=== PATIENT | female | born 1985 | race Caucasian/White ===

== ENCOUNTER 2016-07-14 13:36 | Inpatient (IN) | payer OTHER, BC ==
[2016-07-14 15:09] VITALS: BMI 24.7
[2016-07-14] MEDS ORDERED: AMPICILLIN - 2G/100 ML IVPB ONE (15:30)
[2016-07-14] MEDS ORDERED: TUBERCULIN PPD 5 TU/0.1ML SYRINGE (IN PATIENT USE ONLY) ID ONE (15:30)
[2016-07-14 17:12] LABS: BASOPHIL 0.2 % (0-2.0); EOSINOPHIL 0.4 % (0-4.5); MCH 31.9 pg (25.7-33.7); MCHC 34.3 g/dl (32.0-36.0); MEAN CELL VOLUME 93.1 fl (80-96); MEAN PLT VOLUME 8.4 fl (7.5-11.1); NEUTROPHILS 81.5 % (42.8-82.8); PLATELET COUNT 260 K/MM3 (134-434); RDW 13.6 % (11.6-15.6); WHITE BLOOD COUNT 12.9 K/mm3 (4.0-10.0)
[2016-07-14 17:23] LABS: INR 0.95 (0.82-1.09); PROTHROMBIN TIME (PATIENT) 10.4 SEC (9.98-11.88)
[2016-07-14 17:25] LABS: ACTIVATED PTT 25.3 SECONDS (26.9-34.4)
[2016-07-14 17:43] LABS: CALCIUM 8.8 mg/dL (8.5-10.1); COCKROFT - GAULT 285.3025; CREATININE 0.3 mg/dL (0.55-1.02)
[2016-07-14 18:11] LABS: HIV 1 & 2 AB NEGATIVE; HIV 1 AGp24 NEGATIVE
[2016-07-14] MEDS: AMPICILLIN - 1G/100 ML IVPB SCH ×2 (19:30→23:30)
[2016-07-14] MEDS ORDERED: DEXTROSE 5%-LACTATED RINGERS 1,000 ML IV SCH (22:00)
--- NOTE | 2016-07-14 23:19 | HP ---
Past Medical History - Primary Care Physician PCP:: Bhavin Rousseau - Admission Chief Complaint: 38 weeks, labor History of Present Illness: 30 yo f edc 07/28/16, in labor , cx 9 cm 100 vx 0 mi , fhr cat1, contraction q 2 min. mi, History Source: Patient Limitations to Obtaining History: No Limitations - Past Medical History ...: 2 ...Para: 0 ...Term: 0 ...: 0 ...Spon : 1 ...Induced : 0 ...Multiple Gestation: 0 ...EDC by [facility]: 07/28/16 Psych: Yes: Depression - Past Surgical History Hx Myomectomy: No Hx Transabdominal Cerclage: No - Smoking History Smoking history: Never smoked Have you smoked in the past 12 months: No - Alcohol/Substance Use Hx Alcohol Use: No - Social History Usual Living Arrangement: Yes: With Spouse History of Recent Travel: No Home Medications - Allergies Allergies/Adverse Reactions: Allergies Allergy/AdvReac Type Severity Reaction Status Date / Time No Known Allergies Allergy Verified 07/14/16 13:58 - Home Medications Home Medications: Ambulatory Orders Vit/Iron Fumarate/FA [ Tablet] 1 each PO DAILY 05/22/16 Review of Systems - Review of Systems Constitutional: reports: No Symptoms Eyes: reports: No Symptoms HENT: reports: No Symptoms Cardiovascular: reports: No Symptoms Respiratory: reports: No Symptoms Gastrointestinal: reports: No Symptoms Genitourinary: reports: No Symptoms Breasts: reports: No Symptoms Reported Musculoskeletal: reports: No Symptoms Integumentary: reports: No Symptoms Neurological: reports: No Symptoms Endocrine: reports: No Symptoms Hematology/Lymphatic: reports: No Symptoms Psychiatric: reports: No Symptoms Physical Exam - Maternity Vital Signs: Vital Signs Temperature 97.7 F 07/14/16 22:00 Pulse Rate 117 H 07/14/16 22:00 Respiratory Rate 22 07/14/16 22:00 Blood Pressure 121/63 07/14/16 22:00 O2 Sat by Pulse Oximetry (%) Constitutional: Yes: Well Nourished, No Distress, Calm Eyes: Yes: WNL, Conjunctiva Clear, EOM Intact HENT: Yes: WNL, Atraumatic, Normocephalic Neck: Yes: WNL, Supple, Trachea Midline Cardiovascular: Yes: WNL, Regular Rate and Rhythm Breast(s): Yes: WNL - Abdominal Exam/OB Number of Fetuses: Single Presentation: Vertex Contractions: Yes Regularity: Regular Intensity: Strong Monitor Mode: External Heart Rate Location: [facility] Category: I Accelerations: Uniform Decelerations: None - Vaginal Exam/OB Nitrazine Test: Negative Presentation: Vertex/Position Station: 0 - Physical Exam Musculoskeletal: Yes: WNL Extremities: Yes: WNL Edema: Yes Edema: LLE: Trace, RLE: Trace Deep Tendon Reflex Grade: Normal +2 - Labs Lab Results: CBC, BMP 07/14/16 16:00 07/14/16 16:00 Hemorrhage Risk Assessment - Risk Factors High Risk Factors: Yes: None Risk Score: 0 Risk Level: Low Risk Problem List - Problems (1) 38 weeks gestation of Code(s): Z3A.38 - 38 WEEKS GESTATION OF (2) Labor established Code(s): GQQ4000 - Assessment/Plan admit, fhm
[2016-07-15] MEDS ORDERED: METHYLERGONOVINE MALEATE 0.2 MG/1 ML AMP IM PRN (00:48)
[2016-07-15] MEDS ORDERED: WITCH HAZEL 50% (TUCKS) 40 PAD/JAR PAD TP PRN (00:48)
[2016-07-15] MEDS ORDERED: BISACODYL 10 MG SUPP.RECT RC PRN (00:48)
[2016-07-15] MEDS ORDERED: BENZOCAINE 28 GM HEMORRHOIDAL OINTMENT TP PRN (00:48)
[2016-07-15] MEDS ORDERED: BENZOCAINE 20% 57 GM BOTTLE TP PRN (00:48)
[2016-07-15] MEDS ORDERED: D5W-LR W/ 20 UNITS OXYTOCIN 1,000 ML IV SCH (01:00)
[2016-07-15] MEDS ORDERED: IBUPROFEN 400 MG TABLET (FP) PO ONE (02:15)
[2016-07-15] MEDS: IBUPROFEN 600 MG TABLET (FP) PO PRN ×3 (09:42→22:13)
[2016-07-15] MEDS: FERROUS SO4 325 MG TABLET (FP) PO SCH ×2 (09:43→22:09)
[2016-07-15] MEDS: PRENATAL VITAMINS W/ FOLIC ACID TABLET (FP) PO SCH (09:43)
--- NOTE | 2016-07-15 10:55 | DS ---
Physical Exam-DIRECTOR OF BUSINESS SERVICES Vital Signs: Vital Signs Temperature 98.1 F 07/15/16 06:00 Pulse Rate 88 07/15/16 06:00 Respiratory Rate 20 07/15/16 06:00 Blood Pressure 128/70 07/15/16 06:00 O2 Sat by Pulse Oximetry (%) 99 07/15/16 01:45 Constitutional: Yes: Well Nourished, No Distress, Calm Eyes: Yes: WNL, Conjunctiva Clear, EOM Intact HENT: Yes: WNL, Atraumatic, Normocephalic Neck: Yes: WNL, Supple, Trachea Midline Cardiovascular: Yes: WNL, Regular Rate and Rhythm Respiratory: Yes: WNL, Regular, CTA Bilaterally Gastrointestinal: Yes: WNL ...Rectal Exam: Yes: WNL Renal/: Yes: WNL External Genitalia: Yes: Normal ....Post : Yes: Uterus firm, Uterus non-tender, Slight lochia rubra Breast(s): Yes: WNL Musculoskeletal: Yes: WNL Extremities: Yes: WNL Edema: No Integumentary: Yes: WNL Neurological: Yes: WNL, Alert, Oriented ...Motor Strength: WNL Psychiatric: Yes: WNL, Alert, Oriented Labs: CBC, BMP 07/14/16 16:00 07/14/16 16:00 Delivery - Delivery Vaginal Delivery: Spontaneous (no complication) Type of Anesthesia: Local Episiotomy/Laceration: Midline EBL (cc): 300 Delivery, Single - Stages of Labor Date 1st Stage Initiatied: 07/14/16 Time 1st Stage Initiated: 03:00 Date 2nd Stage Initiated: 07/15/16 Time 2nd Stage Initiated: 00:10 Date of Delivery: 07/15/16 Time of Delivery: 00:29 Time Placenta Delivered: 00:40 Placenta: Yes: Spontaneous - Condition of Infant Lead Retail Sales Associate/Child Psychologist Present: No Infant Gender: Male Weight: 6 lb 4 oz Position: Left, OA Total Hours ROM (Hrs/Mins): 1h40m - 1 Minute Total Score: 9 5 Minutes Total Score: 9 - Feeding Plan Initial Plan: Exclusive throughout hospitalization Discharge Summary Reason For Visit: LABOR Current Active Problems 38 weeks gestation of (Acute) Labor established (Acute) Procedures: Principal: Condition: Good - Instructions Diet, Activity, Other Instructions: regular diet, follow uo 4 weeks in office Referrals: Bhavin Rousseau MD [Staff Physician] - - Home Medications Comprehensive Discharge Medication List: Ambulatory Orders Vit/Iron Fumarate/FA [ Tablet] 1 each PO DAILY 05/22/16
[2016-07-15] MEDS: ACETAMINOPHEN 325 MG TABLET (FP) PO PRN ×2 (14:57→22:14)
--- NOTE | 2016-07-15 17:14 | PN ---
Progress Note (short form) - Note Progress Note: ppd 0 doing well, no c/o uterus firm non tender lochia mild CBC, BMP 07/14/16 16:00 07/14/16 16:00 Last Vital Signs Temp Pulse Resp BP Pulse Ox 98.0 F 83 20 132/64 99 07/15/16 10:00 07/15/16 10:00 07/15/16 10:00 07/15/16 10:00 07/15/16 01:45 plan ambulate, cbc in am Problem List - Problems (1) 38 weeks gestation of Code(s): Z3A.38 - 38 WEEKS GESTATION OF (2) Labor established Code(s): SUJ0239 -
[2016-07-16 08:17] LABS: BASOPHIL 0.3 % (0-2.0); EOSINOPHIL 1.7 % (0-4.5); MCH 32.4 pg (25.7-33.7); MCHC 34.2 g/dl (32.0-36.0); MEAN CELL VOLUME 94.7 fl (80-96); MEAN PLT VOLUME 8.2 fl (7.5-11.1); NEUTROPHILS 65.2 % (42.8-82.8); PLATELET COUNT 224 K/MM3 (134-434); WHITE BLOOD COUNT 10.6 K/mm3 (4.0-10.0)
--- NOTE | 2016-07-16 08:57 | PN ---
Progress Note (short form) - Note Progress Note: ppd 1 no pain, no excess vaginal bleeding , has hemorrhoidal pain CBC, BMP 07/16/16 06:00 07/14/16 16:00 Last Vital Signs Temp Pulse Resp BP Pulse Ox 97.4 F L 78 18 122/68 99 07/16/16 07:36 07/16/16 07:36 07/16/16 07:36 07/16/16 07:36 07/15/16 01:45 uterus firm, non tender .no cva lochia mild no calf tenderness plan ambulate, sitz bath Problem List - Problems (1) 38 weeks gestation of Code(s): Z3A.38 - 38 WEEKS GESTATION OF (2) Labor established Code(s): ZHS4489 -
[2016-07-16] MEDS: IBUPROFEN 600 MG TABLET (FP) PO PRN ×2 (09:30→21:31)
[2016-07-16] MEDS: FERROUS SO4 325 MG TABLET (FP) PO SCH ×2 (09:30→21:30)
[2016-07-16] MEDS: ACETAMINOPHEN 325 MG TABLET (FP) PO PRN ×2 (09:31→21:30)
[2016-07-16] MEDS: PRENATAL VITAMINS W/ FOLIC ACID TABLET (FP) PO SCH (09:32)
[2016-07-16] MEDS ORDERED: TUBERCULIN PPD 5 TU/0.1ML SYRINGE (IN PATIENT USE ONLY) ID ONE (11:00)
[2016-07-16] MEDS ORDERED: SENNOSIDES/DOCUSATE COMBO (SENNA PLUS) TABLET (UD) PO PRN (22:00)
[2016-07-17 10:02] VITALS: BP 106/55; PULSE 76; TEMP 98
[2016-07-17] MEDS: IBUPROFEN 600 MG TABLET (FP) PO PRN (10:11)
[2016-07-17] MEDS: PRENATAL VITAMINS W/ FOLIC ACID TABLET (FP) PO SCH (10:13)
[2016-07-17] MEDS: FERROUS SO4 325 MG TABLET (FP) PO SCH (10:13)
[2016-07-17] MEDS: ACETAMINOPHEN 325 MG TABLET (FP) PO PRN (10:13)
--- NOTE | 2016-07-17 12:20 | DS ---
Physical Exam-REGULATORY LEAD Vital Signs: Vital Signs Temperature 98.0 F 07/17/16 07:45 Pulse Rate 76 07/17/16 07:45 Respiratory Rate 20 07/17/16 07:45 Blood Pressure 106/55 07/17/16 07:45 O2 Sat by Pulse Oximetry (%) 99 07/15/16 01:45 Constitutional: Yes: Well Nourished, No Distress, Calm Eyes: Yes: WNL, Conjunctiva Clear, EOM Intact HENT: Yes: WNL, Atraumatic, Normocephalic Neck: Yes: WNL, Supple, Trachea Midline Cardiovascular: Yes: WNL, Regular Rate and Rhythm Respiratory: Yes: WNL, Regular, CTA Bilaterally Gastrointestinal: Yes: WNL ...Rectal Exam: Yes: WNL Renal/: Yes: WNL ....Post : Yes: Uterus firm, Uterus non-tender, Slight lochia rubra Breast(s): Yes: WNL Musculoskeletal: Yes: WNL Extremities: Yes: WNL Edema: No Integumentary: Yes: WNL Neurological: Yes: WNL, Alert, Oriented ...Motor Strength: WNL Psychiatric: Yes: WNL, Alert, Oriented Labs: CBC, BMP 07/16/16 06:00 07/14/16 16:00 Delivery - Delivery Vaginal Delivery: Spontaneous (no complication, cord around neck once , reduced) Type of Anesthesia: Local Episiotomy/Laceration: Midline EBL (cc): 300 Delivery, Single - Stages of Labor Date 1st Stage Initiatied: 07/14/16 Time 1st Stage Initiated: 03:00 Date 2nd Stage Initiated: 07/15/16 Time 2nd Stage Initiated: 00:10 Date of Delivery: 07/15/16 Time of Delivery: 00:29 Time Placenta Delivered: 00:40 Placenta: Yes: Spontaneous - Condition of Infant Rack Room Worker/Substance Abuse Counselor Present: No Gender: Male Weight: 6 lb 4 oz Position: Left, OA Total Hours ROM (Hrs/Mins): 1h40m - 1 Minute Total Score: 9 5 Minutes Total Score: 9 - Feeding Plan Initial Plan: Exclusive throughout hospitalization Discharge Summary Reason For Visit: LABOR Current Active Problems 38 weeks gestation of (Acute) Labor established (Acute) Procedures: Principal: Condition: Good - Instructions Diet, Activity, Other Instructions: regular diet, follow up 4 weeks in office. Return to MD office on 07/18-07/19 for PPD reading. Referrals: Bhavin Rousseau MD [Staff Physician] - - Home Medications Comprehensive Discharge Medication List: Ambulatory Orders Vit/Iron Fumarate/FA [ Tablet] 1 each PO DAILY 05/22/16
== END 2016-07-17 13:50 | disposition home or self-care (01) | DRG 775 ==
LOC: JDEL 13:36 → JLDR 14:20 → J3W 07-15 02:20
PROVIDERS: ADMIT Obstetrics & Gynecology; ATTEND Obstetrics & Gynecology
PROC: 0W8NXZZ Division of Female Perineum, External Approach (ICD-10-PCS; principal; 2016-07-15)
PROC: 10E0XZZ Delivery of Products of Conception, External Approach (ICD-10-PCS; 2016-07-15)
DX: O69.81X0 Labor and delivery complicated by cord around neck, without compression, not applicable or unspecified (principal); Z3A.38 38 weeks gestation of pregnancy; Z37.0 Single live birth
CPT/HCPCS: 36415; 59409; 80048; 85025; 85610; 85730; 86593; 86850; 86900; 86901; 87389